=== PATIENT | male | born 1950 ===

== ENCOUNTER 2018-04-14 12:46 | Outpatient (CLI) | END 2018-04-14 13:02 | disposition short-term general hospital (02) | LOC: AMBL 12:46 | PROVIDERS: ATTEND Emergency Medicine | DX: R41.82 Altered mental status, unspecified (principal); K92.1 Melena; R53.1 Weakness; I95.9 Hypotension, unspecified; I99.9 Unspecified disorder of circulatory system; H92.12 Otorrhea, left ear; R40.2421 Glasgow coma scale score 9-12, in the field [EMT or ambulance] ==